=== PATIENT | female | born 1950 | race Caucasian/White ===

== ENCOUNTER 2018-09-16 11:00 | Outpatient (RCR) | payer MEDICARE | END 2018-09-27 | LOC: OT 11:00 | PROVIDERS: ATTEND Specialist | DX: S52.591S Other fractures of lower end of right radius, sequela (principal); M25.531 Pain in right wrist; M25.641 Stiffness of right hand, not elsewhere classified; M25.631 Stiffness of right wrist, not elsewhere classified; R53.1 Weakness | CPT/HCPCS: 97022 ×3; 97110 ×4; 97165; G8987; G8988 ==